=== PATIENT | female | born 1990 | race Caucasian/White ===

== ENCOUNTER 2016-07-20 10:55 | Outpatient (CLI) | payer MEDICAID ==
[2016-07-20 11:16] LABS: HCG UR QUAL NEGATIVE
== END 2016-07-20 10:56 | disposition home or self-care (01) ==
LOC: LAB 10:55
PROVIDERS: ATTEND Obstetrics & Gynecology
DX: N75.0 Cyst of Bartholin's gland (principal)
CPT/HCPCS: 81025

== ENCOUNTER 2016-07-22 10:27 | Day surgery (SDC) | payer MEDICAID ==
--- NOTE | 2016-07-20 11:23 | PREOP HISTORY & PHYSICAL ---
DATE OF ADMISSION/SURGERY: 07/22/2016 IDENTIFICATION: A 25-year-old G2, P1-0-1-1. HISTORY OF PRESENT ILLNESS: This patient presents today to [facility] for scheduled preoperative visit. She has a history of recurrent left Bartholin cyst abscess in which she has had m ultiple incisions and drainages, as well as placement of a Word catheter. I saw the patient on 2016, and she still had a significant abscess. I discussed with the patient since her abscess has bee n recurrent, we should proceed to more aggressive resolution of her abscess. I recommended to her deb t we remove her Bartholin gland as well as do a marsupialization should there be any remainders of th e gland after surgery. I discussed with the patient the risks, benefits, alternatives, indications an d expectations of surgery. Included in this discussion were the risk of infection, hemorrhage, and da mage to surrounding organs that would include the bladder and the rectum. All her questions were answ ered to her satisfaction, she verbalized her desire to proceed with surgery. Consent forms have been signed. She denies any nausea, vomiting, fevers, chills, diarrhea or constipation. The patient is feeling tir ed, but she does have a young child at home. FAMILY HISTORY 1. Depression. 2. Migraines; known to be triggered by Vicodin. PAST SURGICAL HISTORY: Laparoscopy for ovarian cyst and appendectomy. ALLERGIES: VICODIN, IN WHICH SHE HAS MIGRAINE HEADACHES. MEDICATIONS: None. SOCIAL HISTORY: Her is Xavi and they have Avelino, who is age 3. The patient does go to [facility] in [place] for her pharmacy. PAST OBSTETRICAL HISTORY: One spontaneous and 1 term spontaneous vaginal delivery. PAST GYNECOLOGIC HISTORY: All Pap smears have been reported to be within normal limits, and she denie s any sexually transmitted diseases. REVIEW OF SYSTEMS: Negative unless otherwise stated. OBJECTIVE VITAL SIGNS: Weight 147 pounds, height 70 inches, BMI 21.1, blood pressure 118/68. GENERAL: The patient is a well-developed, well-nourished female in no apparent distress. neeru is alert and oriented x3. HEENT: Within normal limits. She does have colored fairy hair. CARDIOVASCULAR: Rate is regular. No murmurs, rubs. PULMONARY: Lungs clear to auscultation bilaterally. ABDOMEN: Soft, nontender. No masses, rebound, rigidity, or guarding. ASSESSMENT 1. A 25-year-old G2, P1-0-1-1. 2. Recurrent left Bartholin cyst abscess. PLAN 1. We will proceed to a scheduled excision of left Bartholin gland as well as marsupialization. 2. Prescription for oxycodone for any breakthrough pain after surgery. 3. The patient will go to [facility] for a urine test. 4. The patient is to call me should she have any worsening fevers, chills, abdominal pain or vaginal bleeding. JOB #: [id number] EXT JOB #:[id number]
[~2016-07-22 10:27] MED LIST: CELECOXIB 100 MG CAPSULE PO ONE; ceFAZolin 1 GM VIAL ONE
[2016-07-22] MEDS ORDERED: LACTATED RINGERS 1,000 ML IV ONE ×3 (10:40→18:38)
[2016-07-22 11:17] LABS: HCG UR QUAL NEGATIVE
[2016-07-22] MEDS ORDERED: PROPOFOL 200 MG/20 ML VIAL IVP ONE (18:00)
[2016-07-22] MEDS ORDERED: LIDOCAINE-MPF 2% 5 ML VIAL IM ONE (18:00)
[2016-07-22] MEDS ORDERED: DEXAMETHASONE 4 MG/ML VIAL IVP ONE (18:00)
[2016-07-22] MEDS ORDERED: ONDANSETRON 4 MG/2 ML VIAL IVP ONE (18:00)
[2016-07-22] MEDS ORDERED: fentaNYL 100 MCG/2 ML VIAL IVP ONE (18:00)
[2016-07-22] MEDS ORDERED: MIDAZOLAM 2 MG/2 ML VIAL IVP ONE (18:00)
[2016-07-22] MEDS: MEPERIDINE 50 MG/ML SYRINGE ONE ×4 (18:36→18:58)
[2016-07-22] MEDS ORDERED: LIDOCAINE 1% 50 ML MDV SUBQ ONE (18:37)
--- NOTE | 2016-07-22 18:37 | OPERATIVE REPORT ---
Operative Report - Other Other Information/Narrative: Date of operation: 07/22/2016 Surgeon: Chelsea Vega DO FACOG Vocational Examiner: None Vp Rheumatology: Dario Clark CRNA Anesthesia: GET Pre-op Dx: 1. 25 yo 2. Left recurrent Bartholin's cyst abscess Post-op Dx: 1. 25 yo 2. Left recurrent Bartholin's cyst abscess Procedure: Excision of left Bartholin's gland Findings: Enlarged left Bartholin's cyst Specimens: Left Bartholin's gland Drains: None EBL: 30 mL Complications: None
[2016-07-22] MEDS ORDERED: fentaNYL 100 MCG/2 ML VIAL ONE (18:59)
--- NOTE | 2016-07-22 19:14 | OPERATIVE REPORT ---
DATE OF SURGERY: 07/22/2016 00:00:00 PREOPERATIVE DIAGNOSIS: 1. A 25-year-old G2, P1-0-1-1. 2. Left recurrent Bartholin cyst abscess. POSTOPERATIVE DIAGNOSIS: 1. A 25-year-old G2, P1-0-1-1. 2. Left recurrent Bartholin cyst abscess. NAME OF PROCEDURE: Excision of left Bartholin gland. SURGEON: Chelsea Vega DO FACOG STRATEGIC ANALYST: None. ANESTHESIA: General endotracheal tube. TRANSPORTATION OFFICER: Yash Clark CRNA. FINDINGS: A large left Bartholin cyst. SPECIMENS: Left Bartholin gland. DRAINS: None. ESTIMATED BLOOD LOSS: 30 mL. COMPLICATIONS: None. BRIEF HISTORY: This is a patient of [facility] [place] who has had a history of a left recurrent Bartholin cyst abscess. She has had this Bartholin cyst abscess incised and drained and had a trial of a Word catheter. Unfortunately, this abscess returns. I discussed with the patient the risks, benefits, alternatives, indications, and expectations of excision of the Bartholin gland, as well as marsupialization. After all of the patient's questions were answered to her satisfaction, she verbalized her desire to proceed with surgery. Included in our discussion were the risks of hemorrhage, infection, and damage to surrounding organs, which would most likely be to the bladder or to the rectum. Consent forms have been signed. OPERATION IN DETAIL: The patient was identified, consented, and taken to the operating room where IV access was already in place. She was then given sequential compression devices, which were placed on her lower extremities and turned on. The patient was then given satisfactory general endotracheal tube anesthesia as per Yash Clark CRNA. She was given 1 gram of Ancef prior to the initiation of anesthesia, given that she has a recurrent abscess. The patient was prepped and draped in normal sterile fashion in lithotomy position. Her bladder was drained with an in-and-out catheter, and approximately 100 mL of clear urine was obtained. A timeout was performed, which correctly identified the patient, site of the procedure, and the procedure itself. The vulva was palpated, and the left Bartholin cyst gland was identified. Incision was made in the vagina, just medial to the vagina and remnants of the obliterated hymen. The Bartholin gland was then sharply and bluntly dissected. It was inadvertently ruptured, and a thick mucus that was colorless came out of the gland. After the gland was removed, the area was then sutured with 2-0 vicryl to obtain hemostasis. The patient tolerated the procedure well and was taken back to the recovery room in stable condition. She will be discharged to home later today after postoperative criteria are met. The patient is to see me at [facility] [place] in 2 weeks for a routine postop visit. All sponge, lap and needle counts were correct x2 as per nurse report. JOB #: [id number] EXT JOB #:[id number] MTDD
[2016-07-22] MEDS ORDERED: oxyCODONE 5 MG TABLET ONE (19:21)
[2016-07-22 19:37] VITALS: BP 124/73
== END 2016-07-22 10:28 | disposition home or self-care (01) ==
LOC: SDS 10:27
PROVIDERS: ATTEND Obstetrics & Gynecology
PROC: 0UT Female Reproductive System, Resection (ICD-10-PCS; principal; 2016-07-22 11:45)
DX: N75.1 Abscess of Bartholin's gland (principal); N75.0 Cyst of Bartholin's gland; F17.200 Nicotine dependence, unspecified, uncomplicated
CPT/HCPCS: 56740; 81025; A9270; J7120; 88304